=== PATIENT | female | born 1980 | race Hispanic/Latino ===

== ENCOUNTER 2017-09-21 10:24 | Inpatient (IN) | payer BC, OTHER ==
[2017-09-18 13:41] VITALS: BMI 26.6
[2017-09-21 10:56] LABS: HEMATOCRIT 39.6 % (34.0-47.0); MEAN CELL VOLUME 92.5 fl (81.0-99.0); MEAN CORPUSCULAR HEMOGLOBIN 30.8 pg (27.0-31.0); MEAN CORPUSCULAR HGB CONC 33.3 g/dL (33.0-37.0); RED CELL DISTRIBUTION WIDTH 13.8 % (11.5-14.5); WHITE BLOOD COUNT 7.2 K/uL (4.8-10.8)
[2017-09-21] MEDS ORDERED: ceFAZolin IV 1 gm in Dextrose 1 GM/50 ML BAG IVPB ONE ×2 (11:11→12:10)
[2017-09-21] MEDS ORDERED: Bupivacaine 0.5% Inj(30mL) ONE (11:11)
[2017-09-21] MEDS ORDERED: Propofol 10 mg/ml Inj (20 ML) ONE (11:49)
[2017-09-21] MEDS ORDERED: Lidocaine 4% (Laryng-O-Jet) Kit MM ONE (11:50)
[2017-09-21] MEDS ORDERED: ePHEDrine 50 mg/ml Inj ONE (11:50)
[2017-09-21] MEDS ORDERED: Rocuronium 10 mg/ml (5 ml) ONE ×2 (11:50→13:36)
[2017-09-21] MEDS ORDERED: Midazolam 2 MG/2 ML VIAL ONE (11:50)
[2017-09-21] MEDS ORDERED: Lactated Ringer's 1,000 ML IV ONE ×3 (11:50→13:19)
[2017-09-21] MEDS ORDERED: Succinylcholine 200 mg/10 ml Inj IV ONE (11:50)
[2017-09-21] MEDS ORDERED: Desflurane Inhalation Anesthetic Liq (240 ml) ONE (12:12)
[2017-09-21] MEDS ORDERED: Dexamethasone 4 mg/1 ml ONE (12:21)
[2017-09-21] MEDS ORDERED: Neostigmine Methylsulfate 3mg/3ml Syringe IV ONE (15:36)
[2017-09-21] MEDS ORDERED: Naloxone 0.4 mg/ml Inj (Adult) IVP PRN (16:02)
--- NOTE | 2017-09-21 16:06 | PCM.SURG1 ---
<Bartolo Rainey - Last Filed: 09/21/17 16:01> Surgeon's Initial Post Op Note - Surgeon's Notes Surgeon: Dr Vale Entry Level Programmer: Dr Brigid Hernandez PGY3 Type of Anesthesia: General Endo Pre-Operative Diagnosis: endometriosis Operative Findings: see report for full detail Post-Operative Diagnosis: as above Operation Performed: 1. Cytoscopy w/ ureteral catheter insertion. 2. Hysteroscopy. 3. robotic excision of endometriosis: 4. b/l salpingectomy. 5. right ovarian cystectomy. 6. appendectomy. 7. excision of bladder mass. 8. excision of sigmoid mass x 2. 9. excision of deep rectal mass. 10. excision of cecum x 2. 11. excision of right diaphragm lesion w/ repair Specimen/Specimens Removed: b/l fallopian tubes. right ovarian cyst. appendix. bladder mass. sigmoid mass x 2. deep rectal mass. cecal mass x 2. right diaphragmatic mass Estimated Blood Loss: EBL {In ML}: 50 Blood Products Given: N/A Drains Used: No Drains Post-Op Condition: Good Date of Surgery/Procedure: 09/21/17 Time of Surgery/Procedure: 16:08 <Abdon Vale - Last Filed: 09/25/17 16:25> Surgeon's Initial Post Op Note - Surgeon's Notes Operation Performed: bilateral ureterolysis
[2017-09-21] MEDS: HYDROmorphone 0.5 mg/0.5 ml ISec IVP PRN ×2 (16:15→17:15)
--- NOTE | 2017-09-21 17:12 | RAD ---
PROCEDURE: CHEST RADIOGRAPH, 1 VIEW HISTORY: r/o ptx COMPARISON: None available. FINDINGS: LUNGS: No infiltrate identified bilaterally. PLEURA: No pneumothorax or pleural fluid seen. CARDIOVASCULAR: Normal size cardiac silhouette is appreciated there is some prominence of the hilar vascular markings. Clinically correlate further. OSSEOUS STRUCTURES: No significant abnormalities. VISUALIZED UPPER ABDOMEN: Normal. OTHER FINDINGS: None. IMPRESSION: Mild prominence of the proximal central hilar vascular markings. Clinically correlate. No cardiomegaly or infiltrate bilaterally. No pleural effusion or pneumothorax.
[2017-09-21] MEDS: Lactated Ringer's 1,000 ML IV SCH (17:30)
[2017-09-21] MEDS ORDERED: Influenza Vaccine 18yr & older 0.5 ML/45 MCG SYR IM ONE (18:50)
--- NOTE | 2017-09-21 19:07 | CP.CCUPN ---
CCU Subjective - Physician Review Events Since Last Encounter (Free Text): 09/21/17 19:38 The patient was Seen/interviewed and examined by me at the bedside, Medical records reviewed and Management issues were discussed and formulated with the house staff. 37 Years old female with endometriosis admitted to ICU following Cytoscopy, Hysteroscopy, robotic excision of endometriosis, b/l salpingectomy, right ovarian cystectomy, appendectomy. Excision of bladder mass, sigmoid mass, deep rectal mass and excision of cecum Excision of right diaphragm lesion w/ repair Procedure done under General Anesthesia and was uneventful EBL {In ML}: 50 Patient was successfully extubated, admitted to ICU hemodynamically stable, denies any chest pain or SOB Clinically and hemodynamically stable Comfortable, NAD Pt AAO x3. CCU Objective - Vital Signs / Intake & Output Vital Signs (Last 4 hours): Vital Signs Temp Pulse Resp BP Pulse Ox 09/21/17 18:23 78 15 130/91 H 99 09/21/17 18:00 65 18 124/71 100 09/21/17 17:45 68 18 120/70 100 09/21/17 17:30 64 18 121/72 100 09/21/17 17:15 63 18 134/69 100 09/21/17 17:00 73 18 128/69 100 09/21/17 16:45 67 18 129/79 100 09/21/17 16:30 97.2 F L 75 18 129/80 100 09/21/17 16:15 96.8 F L 73 18 128/72 100 09/21/17 16:00 96.5 F L 78 18 136/72 100 Intake and Output (Last 8hrs): Intake & Output 09/21/17 09/21/17 09/21/17 06:59 14:59 22:59 Intake Total 2800 300 Output Total 600 Balance 2800 -300 Weight 157 lb Intake: IV 2800 300 Output: Urine 600 Other: Voiding Method Toilet - Physical Exam Head: Positive for: Atraumatic, Normocephalic Pupils: Positive for: PERRL Extroacular Muscles: Positive for: EOMI Conjunctiva: Positive for: Normal Ears: Positive for: Normal Mouth: Positive for: Moist Mucous Membranes Nose (External): Positive for: Atraumatic Nose (Internal): Positive for: Normal Inspection Neck: Positive for: Normal Range of Motion, Trachea Midline. Negative for: Meningeal Signs, MIDLINE TENDERNESS, Paraspinal Tenderness, JVD, Lymphadenopathy , Bruit, Other Respiratory/Chest: Positive for: Clear to Auscultation, Good Air Exchange. Negative for: Respiratory Distress, Accessory Muscle Use, Wheezes, Decreased Breath Sounds, Rales, Retracting, Rhonchi Cardiovascular: Positive for: Regular Rate and Rhythm, Normal S1, S2, Peripheal Pulses Present. Negative for: Murmurs, Irregular Rhythm, Tachycardic, Bradycardic Abdomen: Positive for: Tenderness, Distention, Normal Bowel Sounds. Negative for: Peritoneal Signs, Rebound Neurological: Positive for: GCS=15, CN II-XII Intact, Speech Normal, Motor Func Grossly Intact, Normal Sensory Function Psychiatric: Positive for: Alert, Oriented x 3 - Medications Active Medications: Active Medications Generic Name Dose Route Start Last Admin Trade Name Freq PRN Reason Stop Dose Admin Enoxaparin Sodium 30 mg 09/21/17 22:00 Lovenox SC DAILY [facility] Protocol Home Med 1.2 gm 09/21/17 17:00 Mesalamine [Lialda] PO BID [facility] Hydromorphone HCl 0 mg 09/21/17 16:02 09/21/17 17:30 Dilaudid 0.2 Mg/Ml Nursery Worker IV 0 mg PRN PRN Administration Pain, moderate (4-7) Protocol Lactated Ringer's 1,000 mls @ 125 mls/hr 09/21/17 16:15 09/21/17 17:30 Lactated Ringer's IV 100 mls .Q8H GI Administration Cefazolin Sodium/Dextrose 1 gm in 50 mls @ 50 mls/hr 09/21/17 21:00 Ancef Iv 1 Gm Duplex IVPB Q12 [facility] Protocol Metronidazole 100 mls @ 100 mls/hr 09/21/17 21:00 Flagyl 500mg/100ml Ns IVPB Q12 [facility] Protocol Influenza Virus Vaccine 0.5 ml 09/21/17 18:50 Afluria (Pf)(18yr & Older) IM 09/21/17 18:51 .ONCE ONE Levothyroxine Sodium 50 mcg 09/22/17 06:30 Synthroid PO DAILY@0630 [facility] Naloxone HCl 0.1 mg 09/21/17 16:02 Narcan IVP Q2M PRN Opiate reversal Ondansetron HCl 4 mg 09/21/17 16:17 Zofran Inj IVP Q4 PRN Nausea/Vomiting - Patient Studies Lab Studies: Lab Studies 09/21/17 09/21/17 09/21/17 Range/Units 11:40 10:45 10:45 WBC 7.2 (4.8-10.8) K/uL RBC 4.28 (3.80-5.20) Mil/uL Hgb 13.2 (12.0-16.0) g/dL Hct 39.6 (34.0-47.0) % MCV 92.5 (81.0-99.0) fl MCH 30.8 (27.0-31.0) pg MCHC 33.3 (33.0-37.0) g/dL RDW 13.8 (11.5-14.5) % Plt Count 288 (130-400) K/uL Blood Type A NEGATIVE Blood Type Confirm A NEGATIVE Antibody Screen Negative BBK History Checked No verified bt Laboratory Results - last 24 hr 09/21/17 09/21/17 09/21/17 10:45 10:45 11:40 WBC 7.2 RBC 4.28 Hgb 13.2 Hct 39.6 MCV 92.5 MCH 30.8 MCHC 33.3 RDW 13.8 Plt Count 288 Blood Type A NEGATIVE Blood Type Confirm A NEGATIVE Antibody Screen Negative BBK History Checked No verified bt Review of Systems - Cardiovascular Cardiovascular: absent: As Per HPI, Acrocyanosis, Chest Pain, Chest Pain at Rest , Chest Pain with Activity, Claudication, Diaphoresis, Dyspnea, Dyspnea on Exertion, Edema, Irregular Heart Rhythm, Pain Radiating to Arm/Neck/Jaw, Leg Edema, Leg Ulcers, Lightheadedness, Orthopnea, Palpitations, Paroxysmal Nocturnal Dyspnea, Pedal Edema, Radiating Pain, Rapid Heart Rate, Slow Heart Rate, Syncope, Other, UNREMARKABLE - Respiratory Respiratory: absent: As Per HPI, Cough, Dyspnea, Hemoptysis, Dyspnea on Exertion , Wheezing, Snoring, Stridor, Pain on Inspiration, Chest Congestion, Excessive Mucous Production, Change in Mucous Color, Pain with Coughing, Other, UNREMARKABLE Critical Care Progress Note - Extremities/Vascular Does the Patient have a Central Venous Catheter?: No Does the Patient need a Central Venous Catheter?: No Does the Patient have a Ferguson Catheter?: No Does the Patient need a Ferguson Catheter?: No - Nutrition Nutrition: Nutrition Category Date Time Status Liquid Diet [DIET] Diets 09/21/17 Lunch Active Assessment/Plan (1) Aftercare following surgery Current Visit: Yes Status: Acute (2) Endometriosis Current Visit: Yes Status: Acute - Assessment and Plan (Free Text) Assessment: Admit to SICU for hemodynamic monitoring Monitor Respiratory status for Respiratory depression PRN Naloxone for RR<8 IV Hydration with LR at 125 ML/H Perioperative Antibiotics as per surgery Pain control with Dilauded SHIP PROPELLER FINISHER NPO until fully awake and cleared by surgery Monitor urine output Ferguson to be removed tomorrow BD nebs q 6h prn PRN Ondansetron Restart outpatient meds, Levothyroxine Wound care OOB chair Incentive spirometry Aggressive pulmonary toilet GI/DVT PPX: Lovenox
[2017-09-21] MEDS: ceFAZolin IV 1 gm in Dextrose 1 GM/50 ML BAG IVPB SCH (22:00)
[2017-09-21] MEDS ORDERED: Enoxaparin 30 mg Syringe SC SCH (22:00)
[2017-09-21] MEDS: metroNIDAZOLE 500mg/100ml NS 100 ML IVPB SCH (22:00)
[2017-09-22] MEDS: Lactated Ringer's 1,000 ML IV SCH (01:30)
[2017-09-22 05:53] LABS: HEMATOCRIT 33.4 % (34.0-47.0); MEAN CELL VOLUME 91.9 fl (81.0-99.0); MEAN CORPUSCULAR HEMOGLOBIN 30.4 pg (27.0-31.0); MEAN CORPUSCULAR HGB CONC 33.1 g/dL (33.0-37.0); RED CELL DISTRIBUTION WIDTH 13.9 % (11.5-14.5); WHITE BLOOD COUNT 13.4 K/uL (4.8-10.8)
[2017-09-22 05:57] LABS: ALB/GLOB RATIO 1.1 (1.0-2.1); ALKALINE PHOSPHATASE 35 U/L (38-126); ALT/SGPT 68 U/L (9-52); AST/SGOT 64 U/L (14-36); BILIRUBIN,TOTAL 0.6 mg/dl (0.2-1.3); BLOOD UREA NITROGEN 7 mg/dl (7-17); CALCIUM 8.1 mg/dL (8.4-10.2); CARBON DIOXIDE 26 mmol/L (22-30); CHLORIDE 104 mmol/L (98-107); GFR AFRICAN-AMERICAN > 60; GLUCOSE,RANDOM 116 mg/dL (65-105); SODIUM 137 mmol/l (132-148)
[2017-09-22] MEDS: Levothyroxine 50 MCG TAB PO SCH (07:00)
[2017-09-22] MEDS: ceFAZolin IV 1 gm in Dextrose 1 GM/50 ML BAG IVPB SCH ×2 (08:21→22:00)
[2017-09-22] MEDS: metroNIDAZOLE 500mg/100ml NS 100 ML IVPB SCH ×2 (08:25→20:33)
--- NOTE | 2017-09-22 09:10 | CP.PCM.PN ---
Subjective - Date & Time of Evaluation Date of Evaluation: 09/22/17 Time of Evaluation: 06:45 - Subjective Subjective: ED EDUCATIONAL AIDE Surgery: Dr Vale Pt S&E. MARIVEL. POD#1 s/p robotic excision of endometriosis. Pt doing very well. Pain well controlled with STATION INSTALLATION SUPERVISOR. Has been tolerating CLD. Using incentive spirometer. Has pain with inspiration but this is to be expected with diaphragm repair. Denies fevers, chills, nausea, vomiting, diarrhea or constipation. Making adequate urine. Objective - Vital Signs/Intake and Output Vital Signs (last 24 hours): Temp Pulse Resp BP Pulse Ox 98.0 F 71 16 107/76 98 09/22/17 00:00 09/22/17 06:00 09/22/17 06:13 09/22/17 06:00 09/22/17 06:13 Intake and Output: 09/22/17 09/22/17 06:59 18:59 Intake Total 1400 100 Output Total 900 100 Balance 500 0 - Medications Medications: Current Medications Enoxaparin Sodium (Lovenox) 30 mg SC DAILY GI PRN Reason: Protocol Home Med (Mesalamine [Lialda]) 1.2 gm PO BID [facility] Hydromorphone HCl (Dilaudid 0.2 Mg/Ml Adult Parole Officer) 0 mg IV PRN PRN; Protocol PRN Reason: Pain, moderate (4-7) Last Admin: 09/21/17 17:30 Dose: 0 mg Lactated Ringer's (Lactated Ringer's) 1,000 mls @ 125 mls/hr IV .Q8H [facility] Last Admin: 09/22/17 01:30 Dose: 125 mls/hr Cefazolin Sodium/Dextrose (Ancef Iv 1 Gm Duplex) 1 gm in 50 mls @ 50 mls/hr IVPB Q12 GI PRN Reason: Protocol Last Admin: 09/22/17 08:21 Dose: 50 mls/hr Metronidazole (Flagyl 500mg/100ml Ns) 100 mls @ 100 mls/hr IVPB Q12 GI PRN Reason: Protocol Last Admin: 09/22/17 08:25 Dose: 100 mls/hr Levothyroxine Sodium (Synthroid) 50 mcg PO DAILY@0630 [facility] Last Admin: 09/22/17 07:00 Dose: 50 mcg Naloxone HCl (Narcan) 0.1 mg IVP Q2M PRN PRN Reason: Opiate reversal Ondansetron HCl (Zofran Inj) 4 mg IVP Q4 PRN PRN Reason: Nausea/Vomiting - Labs Labs: 09/22/17 04:30 09/22/17 04:30 - Constitutional Appears: Non-toxic, No Acute Distress - ENT Exam ENT Exam: Mucous Membranes Moist - Respiratory Exam Respiratory Exam: absent: Accessory Muscle Use, Respiratory Distress - Cardiovascular Exam Cardiovascular Exam: REGULAR RHYTHM. absent: Tachycardia - GI/Abdominal Exam GI & Abdominal Exam: Soft, Tenderness (post-op and appropriate). absent: Distended, Firm, Guarding, Rigid Additional comments: dressing c/d/i - Neurological Exam Neurological Exam: Alert, Awake, Oriented x3 - Psychiatric Exam Psychiatric exam: Normal Affect, Normal Mood - Skin Skin Exam: Normal Color, Warm Assessment and Plan - Assessment and Plan (Free Text) Assessment: 37F POD#1 s/p robotic excision of endometriosis Plan: adv to regular diet D/C killian cont STATION INSTALLATION SUPERVISOR for pain cont LVX for DVT prophylaxis cont abx Ancef/Flagyl Ok to transfer pt to med/surg d/w Dr Vale and Dr Elaina Rainey, PGY3
--- NOTE | 2017-09-22 11:41 | RAD ---
PROCEDURE: CHEST RADIOGRAPH, 1 VIEW HISTORY: r/o ptx COMPARISON: Frontal chest 09/21/2017 3:45 p.m.. FINDINGS: LUNGS: No airspace disease is identified bilaterally. PLEURA: No pneumothorax or pleural fluid seen. CARDIOVASCULAR: Normal. OSSEOUS STRUCTURES: No significant abnormalities. VISUALIZED UPPER ABDOMEN: Distended stomach or splenic flexure seen filled with gas at the left upper quadrant. OTHER FINDINGS: None. IMPRESSION: No interval acute cardiopulmonary disease is appreciated. No pneumothorax in particular. Gaseous distention of the stomach or splenic flexure is seen at the left upper quadrant. Clinically correlate.
[2017-09-22] MEDS ORDERED: Oxycodone/Acetaminophen 5/325 mg Tab PO PRN (12:22)
--- NOTE | 2017-09-22 14:20 | CP.CCUPN ---
CCU Subjective - Physician Review Events Since Last Encounter (Free Text): 09/22/17 14:17 The patient was Seen/interviewed and examined by me at the bedside, Medical records reviewed and Management issues were discussed and formulated with the house staff. 37 Years old female with endometriosis admitted to ICU yesterday following Cytoscopy, Hysteroscopy, robotic excision of endometriosis, b/l salpingectomy, right ovarian cystectomy, appendectomy. Excision of bladder mass, sigmoid mass, deep rectal mass and excision of cecum Excision of right diaphragm lesion w/ repair Procedure done under General Anesthesia and was uneventful EBL {In ML}: 50 Patient was successfully extubated, admitted to ICU hemodynamically stable, denies any chest pain or SOB Clinically and hemodynamically stable Comfortable, NAD Pt AAO x3. Pain well controlled Ferguson removed today OOB to chair I spirometry doing about 1500 Pt's current status is discussed with pt / pt's family CCU Objective - Vital Signs / Intake & Output Vital Signs (Last 4 hours): Vital Signs Temp Pulse Resp BP Pulse Ox 09/22/17 14:00 76 16 128/76 100 09/22/17 13:00 75 15 108/77 98 09/22/17 12:00 98.2 F 75 13 121/69 98 09/22/17 11:00 79 18 110/61 100 Intake and Output (Last 8hrs): Intake & Output 09/21/17 09/22/17 09/22/17 22:59 06:59 14:59 Intake Total 700 1000 1010 Output Total 600 900 200 Balance 100 100 810 Intake: IV 550 1000 500 Intake, Piggyback 150 150 Oral 360 Output: Urine 600 900 200 Urethral (Ferguson) 900 200 Other: # Voids Urine, Voided 1 - Physical Exam Head: Positive for: Atraumatic, Normocephalic Pupils: Positive for: PERRL. Negative for: Sluggish, Non-Reactive Extroacular Muscles: Positive for: EOMI Conjunctiva: Positive for: Normal. Negative for: Injected, Icteric Ears: Positive for: Normal Mouth: Positive for: Moist Mucous Membranes Nose (External): Positive for: Atraumatic Nose (Internal): Positive for: Normal Inspection Neck: Positive for: Normal Range of Motion, Trachea Midline. Negative for: Meningeal Signs, MIDLINE TENDERNESS, Paraspinal Tenderness, JVD, Lymphadenopathy , Bruit, Other Respiratory/Chest: Positive for: Clear to Auscultation, Good Air Exchange. Negative for: Respiratory Distress, Accessory Muscle Use, Wheezes, Decreased Breath Sounds, Rales, Retracting, Rhonchi Cardiovascular: Positive for: Regular Rate and Rhythm, Normal S1, S2, Peripheal Pulses Present. Negative for: Murmurs, Irregular Rhythm, Tachycardic, Bradycardic Abdomen: Positive for: Tenderness, Distention, Normal Bowel Sounds. Negative for: Peritoneal Signs, Rebound, Guarding, Hernias Neurological: Positive for: GCS=15, CN II-XII Intact, Speech Normal, Motor Func Grossly Intact, Normal Sensory Function Skin: Positive for: Warm, Dry, Normal Color. Negative for: Rashes, Diaphoretic , Erythematous Psychiatric: Positive for: Alert, Oriented x 3 - Medications Active Medications: Active Medications Generic Name Dose Route Start Last Admin Trade Name Freq PRN Reason Stop Dose Admin Enoxaparin Sodium 30 mg 09/21/17 22:00 09/22/17 12:05 Lovenox SC 30 mg DAILY [facility] Administration Protocol Cefazolin Sodium/Dextrose 1 gm in 50 mls @ 50 mls/hr 09/21/17 21:00 09/22/17 08:21 Ancef Iv 1 Gm Duplex IVPB 50 mls/hr Q12 GI Administration Protocol Metronidazole 100 mls @ 100 mls/hr 09/21/17 21:00 09/22/17 08:25 Flagyl 500mg/100ml Ns IVPB 100 mls/hr Q12 GI Administration Protocol Ketorolac Tromethamine 30 mg 09/22/17 16:00 Toradol IVP 09/27/17 16:01 Q6 GI Levothyroxine Sodium 50 mcg 09/22/17 06:30 09/22/17 07:00 Synthroid PO 50 mcg DAILY@0630 [facility] Administration Naloxone HCl 0.1 mg 09/21/17 16:02 Narcan IVP Q2M PRN Opiate reversal Ondansetron HCl 4 mg 09/21/17 16:17 Zofran Inj IVP Q4 PRN Nausea/Vomiting Oxycodone/Acetaminophen 1 tab 09/22/17 12:22 09/22/17 13:54 Percocet 5/325 Mg Tab PO 09/25/17 12:23 1 tab Q4 PRN Administration Pain, moderate (4-7) - Patient Studies Lab Studies: Lab Studies 09/22/17 09/22/17 Range/Units 04:30 04:30 WBC 13.4 H D (4.8-10.8) K/uL RBC 3.63 L (3.80-5.20) Mil/uL Hgb 11.0 L D (12.0-16.0) g/dL Hct 33.4 L (34.0-47.0) % MCV 91.9 (81.0-99.0) fl MCH 30.4 (27.0-31.0) pg MCHC 33.1 (33.0-37.0) g/dL RDW 13.9 (11.5-14.5) % Plt Count 226 (130-400) K/uL Sodium 137 (132-148) mmol/l Potassium 4.0 (3.6-5.0) MMOL/L Chloride 104 (98-107) mmol/L Carbon Dioxide 26 (22-30) mmol/L Anion Gap 11 (10-20) BUN 7 (7-17) mg/dl Creatinine 0.6 L (0.7-1.2) mg/dL Est GFR ( Amer) > 60 Est GFR (Non-Af Amer) > 60 Random Glucose 116 H (65-105) mg/dL Calcium 8.1 L (8.4-10.2) mg/dL Total Bilirubin 0.6 (0.2-1.3) mg/dl AST 64 H (14-36) U/L ALT 68 H (9-52) U/L Alkaline Phosphatase 35 L (38-126) U/L Total Protein 6.0 L (6.3-8.2) G/DL Albumin 3.2 L (3.5-5.0) g/dL Globulin 2.8 (2.2-3.9) gm/dL Albumin/Globulin Ratio 1.1 (1.0-2.1) Laboratory Results - last 24 hr 09/22/17 09/22/17 04:30 04:30 WBC 13.4 H D RBC 3.63 L Hgb 11.0 L D Hct 33.4 L MCV 91.9 MCH 30.4 MCHC 33.1 RDW 13.9 Plt Count 226 Sodium 137 Potassium 4.0 Chloride 104 Carbon Dioxide 26 Anion Gap 11 BUN 7 Creatinine 0.6 L Est GFR ( Amer) > 60 Est GFR (Non-Af Amer) > 60 Random Glucose 116 H Calcium 8.1 L Total Bilirubin 0.6 AST 64 H ALT 68 H Alkaline Phosphatase 35 L Total Protein 6.0 L Albumin 3.2 L Globulin 2.8 Albumin/Globulin Ratio 1.1 Review of Systems - Cardiovascular Cardiovascular: absent: As Per HPI, Acrocyanosis, Chest Pain, Chest Pain at Rest , Chest Pain with Activity, Claudication, Diaphoresis, Dyspnea, Dyspnea on Exertion, Edema, Irregular Heart Rhythm, Pain Radiating to Arm/Neck/Jaw, Leg Edema, Leg Ulcers, Lightheadedness, Orthopnea, Palpitations, Paroxysmal Nocturnal Dyspnea, Pedal Edema, Radiating Pain, Rapid Heart Rate, Slow Heart Rate, Syncope, Other, UNREMARKABLE - Respiratory Respiratory: absent: As Per HPI, Cough, Dyspnea, Hemoptysis, Dyspnea on Exertion , Wheezing, Snoring, Stridor, Pain on Inspiration, Chest Congestion, Excessive Mucous Production, Change in Mucous Color, Pain with Coughing, Other, UNREMARKABLE - Gastrointestinal Gastrointestinal: Abdominal Pain. absent: Melena, Nausea, Vomiting Critical Care Progress Note - Extremities/Vascular Does the Patient have a Central Venous Catheter?: No Does the Patient need a Central Venous Catheter?: No Does the Patient have a Ferguson Catheter?: No Does the Patient need a Ferguson Catheter?: No - Nutrition Nutrition: Nutrition Category Date Time Status Regular Diet [DIET] Diets 09/22/17 Breakfast Active Assessment/Plan (1) Aftercare following surgery Current Visit: Yes Status: Acute (2) Endometriosis Current Visit: Yes Status: Acute (3) Post-operative pain Current Visit: Yes Status: Acute - Assessment and Plan (Free Text) Assessment: Patient is hemodynamic stable for transfer out of ICU Monitor Respiratory status for Respiratory depression Decrease to IV Hydration to 50 ml/H Perioperative Antibiotics as per surgery Pain control with Dilauded LANDS RESOURCE MANAGER plus PRN Percocet Clear liquid diet, Advance as tolerate Monitor urine output Ferguson removed today BD nebs q 6h prn PRN Ondansetron Wound care OOB chair Incentive spirometry Aggressive pulmonary toilet Restart outpatient meds, Levothyroxine DVT PPX: Lovenox
[2017-09-23] MEDS: Levothyroxine 50 MCG TAB PO SCH (06:45)
[2017-09-23 07:57] LABS: BASO # 0.1 K/uL (0.0-0.2); BASO % 0.6 % (0.0-2.0); EOS # 0.1 K/uL (0.0-0.7); EOS % 1.5 % (0.0-4.0); HEMATOCRIT 34.7 % (34.0-47.0); LYMPH # 2.1 K/uL (1.0-4.3); LYMPH % 24.1 % (20.0-40.0); MEAN CELL VOLUME 91.5 fl (81.0-99.0); MEAN CORPUSCULAR HEMOGLOBIN 30.8 pg (27.0-31.0); MEAN CORPUSCULAR HGB CONC 33.7 g/dL (33.0-37.0); MEAN PLATELET VOLUME 8.8 fl (7.2-11.7); MONO # 0.8 K/uL (0.0-0.8); MONO % 9.9 % (0.0-10.0); NEUT # 5.5 K/uL (1.8-7.0); NEUT % 63.9 % (50.0-75.0); NRBC % 0.1 % (0.0-0.0); RED CELL DISTRIBUTION WIDTH 14.1 % (11.5-14.5); WHITE BLOOD COUNT 8.6 K/uL (4.8-10.8)
[2017-09-23 08:21] LABS: ALB/GLOB RATIO 1.2 (1.0-2.1); ALKALINE PHOSPHATASE 38 U/L (38-126); ALT/SGPT 59 U/L (9-52); AST/SGOT 47 U/L (14-36); BILIRUBIN,TOTAL 0.5 mg/dl (0.2-1.3); BLOOD UREA NITROGEN 5 mg/dl (7-17); CALCIUM 8.7 mg/dL (8.4-10.2); CARBON DIOXIDE 30 mmol/L (22-30); CHLORIDE 107 mmol/L (98-107); GFR AFRICAN-AMERICAN > 60; GLUCOSE,RANDOM 98 mg/dL (65-105); POTASSIUM 3.9 MMOL/L (3.6-5.0); SODIUM 142 mmol/l (132-148); TOTAL PROTEIN 6.5 G/DL (6.3-8.2)
[2017-09-23] MEDS: ceFAZolin IV 1 gm in Dextrose 1 GM/50 ML BAG IVPB SCH (08:50)
[2017-09-23 08:55] VITALS: BP 126/69; RESP 20; O2SAT 99
[2017-09-23] MEDS ORDERED: Enoxaparin 40 mg Syringe SC SCH (09:00)
[2017-09-23] MEDS: metroNIDAZOLE 500mg/100ml NS 100 ML IVPB SCH (10:05)
--- NOTE | 2017-09-23 11:31 | CP.PCM.DIS ---
Provider - Provider Date of Admission: 09/21/17 16:14 Attending physician: Abdon Vale Primary care physician: Abdon Vale Time Spent in preparation of Discharge (in minutes): 15 Hospital Course - Lab Results Lab Results: Most Recent Lab Values WBC 8.6 K/uL (4.8-10.8) 09/23/17 07:15 RBC 3.80 Mil/uL (3.80-5.20) 09/23/17 07:15 Hgb 11.7 g/dL (12.0-16.0) L 09/23/17 07:15 Hct 34.7 % (34.0-47.0) 09/23/17 07:15 MCV 91.5 fl (81.0-99.0) 09/23/17 07:15 MCH 30.8 pg (27.0-31.0) 09/23/17 07:15 MCHC 33.7 g/dL (33.0-37.0) 09/23/17 07:15 RDW 14.1 % (11.5-14.5) 09/23/17 07:15 Plt Count 238 K/uL (130-400) 09/23/17 07:15 MPV 8.8 fl (7.2-11.7) 09/23/17 07:15 Neut % (Auto) 63.9 % (50.0-75.0) 09/23/17 07:15 Lymph % (Auto) 24.1 % (20.0-40.0) 09/23/17 07:15 [place] % (Auto) 9.9 % (0.0-10.0) 09/23/17 07:15 Eos % (Auto) 1.5 % (0.0-4.0) 09/23/17 07:15 Baso % (Auto) 0.6 % (0.0-2.0) 09/23/17 07:15 Neut # 5.5 K/uL (1.8-7.0) 09/23/17 07:15 Lymph # 2.1 K/uL (1.0-4.3) 09/23/17 07:15 [place] # 0.8 K/uL (0.0-0.8) 09/23/17 07:15 Eos # 0.1 K/uL (0.0-0.7) 09/23/17 07:15 Baso # 0.1 K/uL (0.0-0.2) 09/23/17 07:15 Sodium 142 mmol/l (132-148) 09/23/17 07:15 Potassium 3.9 MMOL/L (3.6-5.0) 09/23/17 07:15 Chloride 107 mmol/L (98-107) 09/23/17 07:15 Carbon Dioxide 30 mmol/L (22-30) 09/23/17 07:15 Anion Gap 10 (10-20) 09/23/17 07:15 BUN 5 mg/dl (7-17) L 09/23/17 07:15 Creatinine 0.6 mg/dl (0.7-1.2) L 09/23/17 07:15 Est GFR ( Amer) > 60 09/23/17 07:15 Est GFR (Non-Af Amer) > 60 09/23/17 07:15 Random Glucose 98 mg/dL (65-105) 09/23/17 07:15 Calcium 8.7 mg/dL (8.4-10.2) 09/23/17 07:15 Total Bilirubin 0.5 mg/dl (0.2-1.3) 09/23/17 07:15 AST 47 U/L (14-36) H D 09/23/17 07:15 ALT 59 U/L (9-52) H 09/23/17 07:15 Alkaline Phosphatase 38 U/L (38-126) 09/23/17 07:15 Total Protein 6.5 G/DL (6.3-8.2) 09/23/17 07:15 Albumin 3.6 g/dL (3.5-5.0) 09/23/17 07:15 Globulin 2.9 gm/dL (2.2-3.9) 09/23/17 07:15 Albumin/Globulin Ratio 1.2 (1.0-2.1) 09/23/17 07:15 Blood Type A NEGATIVE 09/21/17 10:45 Blood Type Confirm A NEGATIVE 09/21/17 11:40 Antibody Screen Negative 09/21/17 10:45 BBK History Checked No verified bt 09/21/17 10:45 - Hospital Course Hospital Course: Pt is a 37F with diagnosis of endometriosis. Pt came via SDS 09/21/17 for robotic excision of endometriosis. Pt tolerated operation well. Kept in house for pain management, observation and diet tolerance. D/C today with pain well controlled, tolerating regular diet, having BMs. All post-op questions answered this morning. Rx provided for percocet and toradol. Pt has f/u appointment scheduled with Dr Vale Discharge Exam - Head Exam Head Exam: NORMAL INSPECTION - ENT Exam ENT Exam: Mucous Membranes Moist - Respiratory Exam Respiratory Exam: absent: Accessory Muscle Use, Prolonged Expiratory Phase - Cardiovascular Exam Cardiovascular Exam: REGULAR RHYTHM. absent: Tachycardia - GI/Abdominal Exam GI & Abdominal Exam: Tenderness (post-op and appropriate). absent: Distended, Firm, Guarding Additional comments: incisions c/d/i - Neurological Exam Neurological exam: Alert, Oriented x3 - Psychiatric Exam Psychiatric exam: Normal Affect, Normal Mood - Skin Skin Exam: Normal Color, Warm Discharge Plan - Discharge Medications Prescriptions: oxyCODONE/Acetaminophen [Percocet 5/325 mg Tab] 1 tab PO Q4 PRN #20 tab PRN Reason: Pain, Moderate (4-7) - Follow Up Plan Condition: GOOD Disposition: HOME/ ROUTINE Referrals: Abdon Vale [Primary Care Provider] -
[2017-09-23 12:26] VITALS: PULSE 79; TEMP 99.4
--- NOTE | 2017-10-05 10:38 | PCM.OP ---
Operative Report - Operative Report Date of Surgery/Procedure: 09/21/17 Time of Surgery/Procedure: 08:00 Surgeon: Dr. Didier Delaney Skilled Labor: Dr. Abdon Vale Anesthesia/Sedation: general/Dr. Richard Pre-Operative Diagnosis: Abdominal pain from mulitfocal endometriosis involving the pelvis, sigmoid colon, rectum, cecum, appendix and right diaphragm Post-Operative Diagnosis: same Indication for Surgery: as above Operative Findings: as above Procedure/Operation Description: 1-Diaphragm resewction with complex repair. 2- Excision multiople rectal, sigmoid colon and cecum endometriosis. 3- Appendectomy. Brief History: This is a 37 year old woman with multifocal endometriosis already brought to the operating room by Dr. Vale when he noted multipl lesions invovling the rectum, sigmoid colon, cecum, appednix and right diaphragm. Intraoperative consultation was requested. Description of the Procedure: The patient had already been brought to the operating room by Dr. Vale (separate dication). After taking control of the robotic console, with the robotic dircted towards the pelvis. The first two lesion encountered werein the sigmoid colon. With blunt and sharp dissection the first lesion was circumscribed circumferentially and excised en-bloc with the aid of electrocautery. A second lesion in close proximity was excised from the sigmoid colon in a similar manner. Both were appropriately marked and sent to pathology separately. With cephalad retraction of the colon another lesion was invivling the deep rectum. The peritoneum of the anterior rectum was incised with electrocautery circumferentially in order to adequately dissect this larger rectal lesion which was partially below the anterior peritoneum. Using similar technique as described above the lesion was removed en-bloc and sent to pathology separately. Two other lesions were similarl;y diswcted from the cecum wall and sent as separate specimens. The mesentery of the ppendix was dissected with electrocautery and the appedniceal artery was dessicated. The appendix was disscted to the base of the cecum and ligated with double 3-0 PDS looped ligatures. The appendix was transected and sent to patholgy separately. With the pelvic portion of the operation completed the robot was re-directed to the right upper quardrant and using blunt and sharp dissecrtion with the aid of electrocautery the right dipahragmatic lesion was incised en-bloc with meticulous attention to hemostasis. This lesion was removed and sent to patholgy separately. The complex defect was repaired primarily with multiple continuous 2-0 vicryl sutures. The right diaphragm was inspected and a few smaller lesions were dessicated with monopolar electrocautery. The area of surgery was inspected and hemostasis was deemed adeqaute. The operation was then turned over to Dr. Vale (separate dictation). Estimated Blood Loss: 25 cc Complications: none Discharge & Condition: stable
--- NOTE | 2017-10-06 20:27 | OP ---
PROCEDURE DATE: 09/21/2017 PREOPERATIVE DIAGNOSES: Pelvic pain, dysmenorrhea, dyspareunia, bladder pain, and pelvic endometriosis. POSTOPERATIVE DIAGNOSES: Pelvic pain, dysmenorrhea, dyspareunia, bladder pain, pelvic endometriosis, bilateral hydrosalpinges, and endometriosis of the pelvic, of the colon and of the appendix. PROCEDURE PERFORMED: Cystoscopy with bilateral ureteral catheterization, diagnostic hysteroscopy, robotic operative excision of endometriosis, bilateral ureterolysis, bilateral salpingectomy, and right ovarian cystectomy. Additionally, there is an appendectomy to be dictated separately by Dr. Didier Delaney and an excision of rectal and diaphragmatic endometriosis mass to be dictated also separately by Dr. Didier Delaney. SURGEON: Abdon Vale MD. EMERGENCY SPILL RESPONSE TECHNICIAN: Didier Delaney MD., from General Surgery. INDICATION FOR PROCEDURE: This patient is a 37-year-old with a known history of significant endometriosis and both pelvic and abdominal pain. The pain has been going on for a long time. She had a prior surgery with a left ovarian cystectomy for endometriosis. Prior to the surgery, she was counseled with regards to the risks and benefits of the procedure. She expressed an understanding of the advantages and disadvantage of going forward with the surgery as well as the potential risks including effect on ovarian reserve as well as necessity to undergo potential fertility treatments in the future. She expressed understanding of this and signed the consent and was taken to the OR. DESCRIPTION OF PROCEDURE: After adequate anesthesia was obtained, the patient was placed in a dorsal lithotomy position. She was prepped and draped. The surgeon gowned and gloved. At this point, attention was in the vaginal area where under the direct visualization, a cystoscope was placed into the bladder. The bladder was visualized and appeared to be free of lesions and other masses. Both ureteral ostia were in the normal anatomical position. An open-ended stent was placed in the left ureter and advanced all the way to the distal ureter and 5 mL IC-Green were injected into the ureter. The catheter was then removed. Again, on the left-hand side, an open-ended catheter was inserted into the right-hand ureter all the way to the distal end and another 5 mL of IC-Green were then injected. At this point, the catheter was removed, the cystoscope was removed and a Ferguson was placed into the bladder. Attention was then in the vaginal area where the speculum was placed in the vagina, the anterior lip of the cervix was grasped and the cervix was dilated. A hysteroscope was placed into the uterine cavity. The cavity appeared to be free of polyps, fibroids, or any other lesions. At this point, after placing uterine manipulator in the uterus, attention was on the abdomen where an open laparoscopy technique was performed to enter the abdominal cavity. At this point, a cannula was placed and the abdomen was insufflated. Under direct visualization, 3 additional trocars were placed; right upper quadrant, left upper quadrant, and left mid quadrant. The pelvis and abdomen were examined. There appeared to be lesions of endometriosis in the diaphragmatic area as well as extensive adhesions in the pelvis involving the colon, the appendix was affected by endometriosis with an extensive disease. Both fallopian tubes appeared to be dilated and involved with endometriosis tissue. Attention was then first on the right-hand side where there were significant adhesions between the posterior aspect of the uterus and the ovary. The right ovary was progressively elevated. Abundant chocolate cyst came out and in order to fully elevate the ovary and to identify the ureter, utilizing fluorescence, the peritoneum was entered and the retroperitoneal space was opened. A progressive dissection was performed, freeing the ureter and elevating finally the ovary completely. An endometriosis cyst identified and it was progressively gently dissected from the right ovary without damaging the ovary. At this point, the right peritoneal wall appeared to be affected with extensive endometriosis, so a full dissection was performed of deep infiltrating endometriosis affecting the right peritoneal wall and sent to pathology. The right fallopian tube was completely conglutinated and dilated. Therefore, it was progressively dissected off with very gently cutting through the mesosalpinx without damaging the vascular supply to the right ovary. At this point, attention was on the left-hand side where the left ovary also appeared to be much smaller in size due to prior surgery and the left fallopian tube was still present. This was a bit surprising as the patient had priorly reported she had a left salpingectomy. Nevertheless, the left tube appeared to have a hydrosalpinx. It was dissected off and progressively removed and again the mesosalpinx was dissected in a very careful [id number] fashion not to damage the ovary. The left pelvic sidewall was also affected by endometriosis. The ureter was identified, utilizing fluorescence, the retroperitoneum was entered and a progressive dissection was performed, dissecting a large area of peritoneum, which extended all the way into the ovarian fossa. A large swath of peritoneum containing endometriosis was dissected. The posterior cul-de-sac also was affected and a full dissection was performed opening the Haider pouch and dissecting an area of endometriosis including partially some perirectal fat, which was also sent to pathology. At this point, attention was on the anterior part of the bladder where a large nodule of endometriosis was present and this was progressively excised in a [id number] fashion without entering the bladder, the bladder muscularis. It was a full dissection and checked very carefully not to enter the bladder. Throughout this full dissection, the urine in the Ferguson flowing persisted, being completely clear. After the full bladder excision of disease was performed, Dr. Delaney took over the procedure and proceeded with a complex excision of additional rectal endometriosis as well as appendectomy as well as excision of endometriosis on the diaphragm, which will be dictated on a separate dictation. At the end of the procedure, once this was completed, the abdomen was desufflated. All the instruments were removed and the patient was taken to the recovery room in excellent condition. Due to the extension of the surgery, the patient went directly to the Intensive Care Unit. Abdon Vale MD MTDD
== END 2017-09-23 14:30 | disposition home or self-care (01) | DRG 331 ==
LOC: H.OPSURG 10:24 → H.ICU/CCU 16:14 → H.PEDS 09-22 15:49
PROVIDERS: ADMIT Obstetrics & Gynecology Reproductive Endocrinology; ATTEND Obstetrics & Gynecology Reproductive Endocrinology
PROC: 0UBF0ZZ Excision of Cul-de-sac, Open Approach (ICD-10-PCS; 2017-09-21)
PROC: 0TBB0ZZ Excision of Bladder, Open Approach (ICD-10-PCS; 2017-09-21)
PROC: 0UT50ZZ Resection of Right Fallopian Tube, Open Approach (ICD-10-PCS; 2017-09-21)
PROC: 0DBN0ZZ Excision of Sigmoid Colon, Open Approach (ICD-10-PCS; 2017-09-21)
PROC: 0DBP0ZZ Excision of Rectum, Open Approach (ICD-10-PCS; 2017-09-21)
PROC: 0DTJ0ZZ Resection of Appendix, Open Approach (ICD-10-PCS; 2017-09-21)
PROC: 0BBT0ZZ Excision of Diaphragm, Open Approach (ICD-10-PCS; 2017-09-21)
PROC: 8E0W0CZ Robotic Assisted Procedure of Trunk Region, Open Approach (ICD-10-PCS; 2017-09-21)
PROC: 0UB00ZZ Excision of Right Ovary, Open Approach (ICD-10-PCS; principal; 2017-09-21 12:00)
PROC: 0DBH0ZZ Excision of Cecum, Open Approach (ICD-10-PCS; 2017-09-21 12:00)
PROC: 0DBW0ZZ Excision of Peritoneum, Open Approach (ICD-10-PCS; 2017-09-21 12:00)
DX: N80.5 Endometriosis of intestine (principal); N70.11 Chronic salpingitis; N80.3 Endometriosis of pelvic peritoneum; N80.8 Other endometriosis; N94.10 Unspecified dyspareunia; N94.6 Dysmenorrhea, unspecified; N80.2 Endometriosis of fallopian tube; N80.1 Endometriosis of ovary